=== PATIENT | male | born 1995 | race African-American/Black ===

== ENCOUNTER 2017-08-19 19:33 | Emergency (ER) | payer MEDICAID ==
[~2017-08-19] VITALS: Ht 188 cm; Wt 97.5 kg
[2017-08-19] MEDS ORDERED: NKM (20:16)
[2017-08-19] MEDS ORDERED: Ketorolac 60mg Inj IM ONE (20:45)
[2017-08-19] MEDS ORDERED: DiphenhydrAMINE 50mg/ml Inj IM ONE (20:45)
[2017-08-19] MEDS ORDERED: Metoclopramide 10mg/2ml Inj IM ONE (20:45)
[2017-08-19] MEDS ORDERED: NAPROXEN500 M2 ORAL (21:05)
[2017-08-19 21:11] VITALS: BP 150/75
--- NOTE | 2017-08-19 22:26 | Emergency Room Report ---
History of Present Illness General Chief Complaint: Headache Source: Patient Present Illness HPI The patient is a 27-year-old male presenting for headache for the past week. He states that this began after encountering more stress recently. Pain is a 7/ 10 dull ache and he feels that this wraps around his head. He has tried Tylenol which does help and then the pain returns. He denies any other symptoms including nausea, vomiting, fever, chills, dizziness, blurred vision, neck pain or stiffness Allergies: Coded Allergies: No Known Allergies (Unverified , 08/19/17) Patient History Past Medical History: see triage record Pertinent Family History: none Reviewed Nursing Documentation: PMH: Agreed, PSxH: Agreed Nursing Documentation-PMH Past Medical History: No Stated History Review of Systems All Other Systems: negative except mentioned in HPI Physical Exam Vital Signs Date Time Temp Pulse Resp B/P (MAP) Pulse Ox O2 Delivery O2 Flow Rate FiO2 08/19/17 20:14 98.2 63 18 150/75 98 Room Air Sp02 EP Interpretation: reviewed, normal General Appearance: no apparent distress, alert, GCS 15, non-toxic Head: normocephalic, atraumatic Eyes: bilateral eye normal inspection, bilateral eye PERRL ENT: hearing grossly normal, normal pharynx, no angioedema, normal voice, uvula midline Neck: full range of motion, no bony tend, supple/symm/no masses Neurologic: alert, oriented x3, responsive, motor strength/tone normal, sensory intact, speech normal Psychiatric: judgement/insight normal, memory normal, mood/affect normal, no suicidal/homicidal ideation Skin: normal color, no rash, warm/dry, well hydrated Lymphatic: no adenopathy Medical Decision Making PA Attestation Dr. Rooney is my supervising physician. Patient management was discussed with my supervising physician Diagnostic Impression: Primary Impression: Headache Qualified Codes: R51 - Headache ER Course The patient is a 27-year-old male presenting for headache for the past week Differential diagnoses include but not limited to Migraine, tension headache, anxiety, among others PE: NAD Head is NC/AT. Non tender. PERRL. EOMI Neck is soft and supple. non tender. Full AROM intact The patient is given IM Toradol, Benadryl, and Reglan and is feeling much better. He'll be discharged home with prescription for naproxen. ER precautions are given Last Vital Signs Date Time Temp Pulse Resp B/P (MAP) Pulse Ox O2 Delivery O2 Flow Rate FiO2 08/19/17 21:11 98.2 63 18 150/75 98 Room Air Status: improved Disposition: HOME, SELF-CARE Condition: Improved Scripts Naproxen* (NAPROXEN*) 500 Mg Tablet 500 MG ORAL TWICE A WEEK, #20 TAB 0 Refills Prov: JO CHOU 08/19/17 Patient Instructions: General Headache Without Cause, Tension Headache Additional Instructions: I discussed my findings with the patient. All questions and concerns have been answered. Treatment and medication compliance have been addressed. I advised the patient that they need to follow up with PMD in 3-5 days. Return to ED if symptoms worsen, new symptoms arise, or if needed for any reason. Patient verbalized understanding of discharge instructions. JO CHOU Aug 19, 2017 22:26
== END 2017-08-19 21:15 | disposition home or self-care (01) ==
LOC: EMR 20:30
DX: R51 Headache (principal)
CPT/HCPCS: 96372; 99284; J1200; J2765